=== PATIENT | male | born 1965 | race Caucasian/White ===

== ENCOUNTER 2016-12-08 06:33 | Day surgery (SDC) | payer BC ==
[~2016-12-08] VITALS: Ht 180.3 cm; Wt 75.9 kg
[~2016-12-08 06:33] MED LIST: CARDIO TABS PO; LACTATED RINGERS 1,000 ML IV SCH; MULT1TAB69 PO; OMEP20TA PO; SODIUM CHLORIDE FLUSH 3 ML SYR IV PRN
--- OUTSIDE RECORDS SUMMARY | 2016-12-08 06:38 | XMS REPORT | Continuity of Care Document ---
Author Author [facility] Address Unknown Phone Unavailable Care Team Providers Care Manager Dairy Name Role Phone LYLY ADAMES MD PCP [phone] Insurance Providers Payer Name Policy Number Subscriber Name Relationship [facility] [id number] Cristi Padgett 19 Self / Same As Patient Advance Directives Directive Response Recorded Date/Time Advanced Directives Yes 11/13/16 2:51pm Type Durable Power of Senior Storage Engineer 11/13/16 2:51pm Type Living Will 11/13/16 2:51pm Other DPOA-/EMILIE DAYRON 11/13/16 2:51pm Chief Complaint and Reason for Visit Chief Complaint GI Complaint Reason for Visit [id number] Problems Active Problems Medical Problem Onset Date Status Esophagogastroduodenoscopy Unknown Acute Rectal bleeding Unknown Acute Medications Past Home Medications Medication Directions Ordered Status Omeprazole 20 Mg Tablet.dr, 20 Mg Oral Daily 06/08/14 Discontinued [Cardio Tabs] , 1 Tab Oral Daily 06/08/14 Discontinued Social History Query Response Start Date Stop Date Smoking Status Never smoker Hospital Discharge Instructions No hospital discharge instructions. Plan of Care Discharge Date 11/13/16 6:37pm Disposition 01 HOME OR SELF-CARE Condition at Discharge Stable Prescriptions See Medication Section Referrals LYLY ADAMES MD - Additional Instructions/Education Call Dr. Alba's office (surgeon) for an appointment within the next week Tell them you were seen in the ER and Dr. Alba was called and wants to see you. Return if symptoms worsen Use a stool softener to keep stools soft. Some of your test results may not be complete prior to your leaving the Emergency Department. The Emergency Department is not authorized to give test results over the phone. Please contact the doctor's office listed in this packet of information for your final results. Follow up with your primary care physician or return to the Emergency Department for worsening or worrisome symptoms. * Emergency Department phone number: [phone], x [phone]* MEDICAL RECORD If you need copies of your X-rays, call [phone]. If you need copies of your medical record, including lab results, a signed authorization for release of records will be required. A telephone call for release of Health Information is not allowed. BILLING Billing can sometimes be confusing and frustrating. To help avoid confusion in the future, please take a moment to acquaint yourself with the billing parties for services. SERVICE BILLING DEMOCRAT Emergency Room Services [facility] Physician Services [facility] X-[facility] Patients will receive bills for services from the appropriate provider. If you have any questions about your [facility] bill, our staff will be happy to assist you. Please call [phone], and ask for the billing department. THANK YOU for choosing [facility] as your emergency care provider! Care Plan and Goals ~~Discharge Care Plan~~ Problem: Nausea, vomiting or diarrhea Goal: Decrease in nausea, vomiting or diarrhea Instructions: Encourage fluids approximately 6-8 glasses of water or noncarbonated fluids. Take medication(s) as directed. Follow home discharge instructions. Follow up with primary care physicians or sanitation supervisor as directed. Functional Status No functional status results. Allergies, Adverse Reactions, Alerts No known allergies. Immunizations No immunization records. Vital Signs Acute Vital Signs Vital Response Date/Time Temperature (Fahrenheit) 98.1 11/13/2016 6:38pm Pulse 79 bpm 11/13/2016 6:38pm Respirations 16 11/13/2016 6:38pm Height 5 ft 11 in Weight 180 lb Body Mass Index 25.0 kg/m^2 Results Laboratory Results Test Name Result Units Flags Reference Collection Date/Time Result Date/ Time Comments White Blood Count 7.26 10^3uL 4.0-11.0 11/13/2016 5:01pm 11/13/2016 5: 21pm Red Blood Count 5.20 10^6uL 4.50-5.50 11/13/2016 5:01pm 11/13/2016 5: 21pm Hemoglobin 14.1 g/dL 13.5-17.0 11/13/2016 5:01pm 11/13/2016 5:21pm Hematocrit 42.10 % 39.00-50.00 11/13/2016 5:01pm 11/13/2016 5:21pm Mean Corpuscular Volume 81 FL 80-100 11/13/2016 5:01pm 11/13/2016 5: 21pm Mean Corpuscular Hemoglobin 27.1 PG 26.0-34.0 11/13/2016 5:01pm 2015 5:21pm Mean Corpuscular Hemoglobin Concent 33.5 g/dL 31.0-37.0 11/13/2016 5: 01pm 11/13/2016 5:21pm Red Cell Distribution Width 16.0 % H 11.8-15.6 11/13/2016 5:01pm 2015 5:21pm Platelet Count 257 10^3uL 150-450 11/13/2016 5:01pm 11/13/2016 5:21pm Mean Platelet Volume 10.1 FL H 6.0-9.5 11/13/2016 5:01pm 11/13/2016 5: 21pm Neutrophils (%) (Auto) 52 % 51-67 11/13/2016 5:01pm 11/13/2016 5:21pm Lymphocytes (%) (Auto) 33 % 20-46 11/13/2016 5:01pm 11/13/2016 5:21pm Monocytes (%) (Auto) 14 % H 3-11 11/13/2016 5:01pm 11/13/2016 5:21pm Eosinophils (%) (Auto) 1 % 0-4 11/13/2016 5:01pm 11/13/2016 5:21pm Basophils (%) (Auto) 0 % 0-2 11/13/2016 5:01pm 11/13/2016 5:21pm Neutrophils # (Auto) 3.8 X10^3 11/13/2016 5:01pm 11/13/2016 5:21pm Lymphocytes # (Auto) 2.4 X10^3 11/13/2016 5:01pm 11/13/2016 5:21pm Monocytes # (Auto) 1.0 X10^3 11/13/2016 5:01pm 11/13/2016 5:21pm Eosinophils # (Auto) 0.1 10^3uL 11/13/2016 5:01pm 11/13/2016 5:21pm Basophils # (Auto) 0.0 10^3uL 11/13/2016 5:01pm 11/13/2016 5:21pm Volume Urine Centrifuged 12 mL 11/13/2016 5:01pm 11/13/2016 5:47pm Urine Collection Type CLEAN CATCH 11/13/2016 5:01pm 11/13/2016 5: 47pm Urine Color Yellow 11/13/2016 5:01pm 11/13/2016 5:21pm Urine Clarity Clear 11/13/2016 5:01pm 11/13/2016 5:21pm Urine pH 7.0 5.0 - 8.0 11/13/2016 5:01pm 11/13/2016 5:21pm Urine Specific [place] 1.020 1.005-1.030 11/13/2016 5:01pm 2015 5:21pm Urine Protein Negative Negative 11/13/2016 5:01pm 11/13/2016 5:21pm Urine Glucose (UA) Negative Negative 11/13/2016 5:01pm 11/13/2016 5: 21pm Urine RBC (Auto) Trace-intact H Negative 11/13/2016 5:01pm 11/13/2016 5:21pm Urine Ketones Negative Negative 11/13/2016 5:01pm 11/13/2016 5:21pm Urine Nitrite Negative Negative 11/13/2016 5:0111/13/2016 5:21pm Urine Bilirubin Negative Negative 11/13/2016 5:01pm 11/13/2016 5: 21pm Urine Urobilinogen 0.2 mg/dL 0.2-1.0 11/13/2016 5:01pm 11/13/2016 5: 21pm Urine Leukocyte Esterase Negative Negative 11/13/2016 5:01pm 2015 5:21pm Urine RBC 0-2 /HPF 11/13/2016 5:01pm 11/13/2016 5:47pm Urine WBC 0-2 /HPF 11/13/2016 5:01pm 11/13/2016 5:47pm Urine Bacteria None Seen /HPF 11/13/2016 5:01pm 11/13/2016 5:47pm Urine Squamous Epithelial Cells 0-2 /LPF 11/13/2016 5:01pm 2015 5:47pm Sodium Level 145 mmol/L 135-150 11/13/2016 5:01pm 11/13/2016 5:42pm Potassium Level 4.1 mmol/L 3.5-5.1 11/13/2016 5:01pm 11/13/2016 5:42pm Chloride Level 103 mmol/L 98-108 11/13/2016 5:01pm 11/13/2016 5:42pm Carbon Dioxide Level 29 mmol/L 22-29 11/13/2016 5:01pm 11/13/2016 5: 42pm Anion Gap 17.0 MEQ/L H 3-15 11/13/2016 5:01pm 11/13/2016 5:42pm Blood Urea Nitrogen 13 mg/dL 7-18 11/13/2016 5:01pm 11/13/2016 5:42pm Creatinine 1.01 mg/dL 0.8-1.5 11/13/2016 5:01pm 11/13/2016 5:42pm BUN/Creatinine Ratio 13 10-11/13/2016 5:01pm 11/13/2016 5:42pm Estimat Glomerular Filtration Rate 94.6 11/13/2016 5:01pm 2015 5:42pm Estimated GFR (Non- 78.2 11/13/2016 5:01pm 2015 5:42pm Glucose Level 95 mg/dL 70-110 11/13/2016 5:01pm 11/13/2016 5:42pm Calculated Osmolality 279 mosm/L L 280-300 11/13/2016 5:01pm 11/13/2016 5:42pm Calcium Level 9.4 mg/dL 8.8-10.8 11/13/2016 5:01pm 11/13/2016 5:42pm Calcium/Ionized Calcium Ratio 4.1 mg/dL 3.8-4.6 11/13/2016 5:01pm 11/13 5:42pm Total Bilirubin 0.3 mg/dL 0.1-1.0 11/13/2016 5:01pm 11/13/2016 5:42pm Alkaline Phosphatase 83 U/L 38-126 11/13/2016 5:01pm 11/13/2016 5:42pm Aspartate Amino Transf (AST/SGOT) 30 U/L 15-37 11/13/2016 5:01pm 2015 5:42pm Alanine Aminotransferase (ALT/SGPT) 58 U/L 30-65 11/13/2016 5:01pm 5:42pm Total Protein 7.2 g/dL 6.4-8.5 11/13/2016 5:01pm 11/13/2016 5:42pm Albumin 4.6 g/dL 3.4-5.0 11/13/2016 5:01pm 11/13/2016 5:42pm Albumin/Globulin Ratio 1.769 1.1-1.8 11/13/2016 5:01pm 11/13/2016 5: 42pm Procedures No known history of procedures. Encounters Encounter Location Arrival/Admit Date Discharge/Depart Date Attending Provider Departed Emergency Room [facility] 11/13/16 2:36pm 11/13/16 6:37pm DONAL CASTORENA MD Recent Diagnosis
[2016-12-08 06:43] VITALS: BP 139/84
[2016-12-08] MEDS ORDERED: ALFENTANIL 500 MCG/ML (ALFENTA) 5 ML AMP IV ONE (07:23)
[2016-12-08] MEDS ORDERED: PROPOFOL 20 ML IV ONE (07:23)
[2016-12-08] MEDS ORDERED: MIDAZOLAM 2 MG/2 ML (VERSED) VIAL ONE (07:23)
[2016-12-08 08:17] VITALS: BP 130/80
[2016-12-08 08:32] VITALS: BP 130/78
--- NOTE | 2016-12-08 11:07 | OPERATIVE REPORT ---
DATE OF OPERATION: 12/08/2016 PRE-OPERATIVE DIAGNOSIS: Intermittent rectal bleeding POST-OPERATIVE DIAGNOSIS: Colon and rectal polyps OPERATIVE PROCEDURE: Total colonoscopy with polypectomies (cautery forceps and endoscopic mucosal resection). SURGEON: Robert Alba MD ANESTHESIA: Monitored anesthesia care FINDINGS: 1. The bowel prep was excellent. 2. There were small nodular polyps seen, 1 at the distal transverse colon, and 1 at 25 cm in the sigmoid colon and 2 in the rectum. The first 2 were removed piecemeal using the cautery forceps and the last 2 were removed using the saline lift technique. 3. No angiodysplasia, diverticula or inflammation were seen. INDICATIONS: The patient is a 51-year-old referred for colonoscopy after he had been seen recently in the ER with rectal bleeding. The bleeding was enough to cause him to come in for evaluation and the ER physician noted an ulcerated hemorrhoid. He is due for colonoscopy screening as well and he presents today for colonoscopy for these reasons. DESCRIPTION OF PROCEDURE: The patient was informed of the risks and benefits and agreed to proceed. He was placed in the left lateral decubitus and administered IV sedation. When properly sedated a rectal exam was performed, which was normal. The lighted endoscope was passed into the rectum and slowly advanced along the colon to the cecum. The ileal cecal valve and appendiceal orifice were easily seen. The scope was slowly brought back through the ascending and transverse colon, where distally within the transverse colon there was a small nodular polyp noted. This was photographed and removed with the cautery forceps. The scope was brought down the descending and sigmoid colon where at 25 cm a similar polyp was found and removed the same way. Within the rectum there was a slightly larger polyp noted and this was removed using the saline lift technique. Finally there was one more in the distal rectum that was removed using that technique. Retroflexion revealed no other polyps, but there was some evidence of internal hemorrhoids. The scope was removed completing the procedure. I would attribute his recent bleeding to hemorrhoids and I will follow up with him in the clinic later this week to discuss the results.
== END 2016-12-08 08:46 | disposition home or self-care (01) ==
LOC: ASC 06:33
PROVIDERS: ATTEND Surgery
DX: K62.5 Hemorrhage of anus and rectum (principal); D12.3 Benign neoplasm of transverse colon; D12.5 Benign neoplasm of sigmoid colon; K63.5 Polyp of colon; K62.1 Rectal polyp
CPT/HCPCS: 45381; 45384; J2250; J7120